=== PATIENT | female | born 1985 | race Caucasian/White ===

== ENCOUNTER 2016-05-20 02:57 | Emergency (ER) | payer OTHER ==
[2016-05-20 03:10] VITALS: BP 139/88; PULSE 68; TEMP 97.3; BMI 22.6
--- NOTE | 2016-05-20 03:38 | PDOC ---
History of Present Illness - General History Source: Patient Exam Limitations: No Limitations - History of Present Illness Initial Comments: 05/20/16 04:23 The patient is a 30-year-old female no significant past medical history, and presents to the emergency department with right ear pain for 4 days. The patient states that the alongside the right ear pain, she found slight blood in the ear as she was cleaning it. She reports associated intermittent chills. She reports that this has never happened previously. She states that she is eating fine. She denies any pain swallowing. She denies any sick contacts. The patient denies chest pain, shortness of breath, headache and dizziness. The patient denies fever, nausea, vomit, diarrhea and constipation. The patient denies dysuria, frequency, urgency and hematuria. Allergies: penicillin, kiwi Social History: Denies tobacco, ETOH, or drug use. PCP: Dr. Myla Garvey <Priscilla Sharma - Last Filed: 05/20/16 04:23> <Janine Fisher - Last Filed: 05/20/16 05:42> - General Chief Complaint: Ear Problem Stated Complaint: EAR PAIN Time Seen by Provider: 05/20/16 03:19 Past History <Priscilla Sharma - Last Filed: 05/20/16 04:23> - Past Medical History Asthma: No Cancer: No Cardiac Disorders: No Diabetes: No HTN: No Seizures: No Thyroid Disease: No - Reproductive History (#): 1 Para: 0 - Immunization History Immunization Up to Date: (unknown) - Psycho/Social/Smoking Cessation Hx Suicidal Ideation: No Smoking Status: No Smoking History: Never smoked Have you smoked in the past 12 months: No Number of Cigarettes Smoked Daily: 0 Hx Alcohol Use: No Drug/Substance Use Hx: No Substance Use Type: None Hx Substance Use Treatment: No <Janine Fisher - Last Filed: 05/20/16 05:42> - Past Medical History Allergies/Adverse Reactions: Allergies Allergy/AdvReac Type Severity Reaction Status Date / Time Penicillins Allergy Severe Difficulty Verified 05/20/16 03:09 Breathing kiwi Allergy Verified 05/20/16 03:09 pineapple Allergy Verified 05/20/16 03:09 Home Medications: Ambulatory Orders Azithromycin [Zithromax Tri-Arjun (3 DAYS) -] 500 mg PO DAILY #3 tablet 05/20/16 Ofloxacin Otic [Floxin Otic (Ear) Solution -] 5 drop AD BID #1 bottle 05/20/16 Oxycodone HCl/Acetaminophen [Percocet 5-325 mg Tablet] 1 tab PO Q6H #20 tablet MDD 4 05/20/16 Review of Systems - Review of Systems Able to Perform ROS?: Yes Comments:: 05/20/16 04:23 CONSTITUTIONAL: Present: (+) chills Absent: fever, diaphoresis, generalized weakness, malaise, loss of appetite HEENT: Present: (+) right ear pain Absent: rhinorrhea, nasal congestion, throat pain, throat swelling, difficulty swallowing, mouth swelling, eye pain, visual changes CARDIOVASCULAR: Absent: chest pain, syncope, palpitations, irregular heart rate, lightheadedness , peripheral edema RESPIRATORY: Absent: cough, shortness of breath, dyspnea with exertion, orthopnea, wheezing, stridor, hemoptysis GASTROINTESTINAL: Absent: abdominal pain, abdominal distension, nausea, vomiting, diarrhea, constipation, melena, hematochezia GENITOURINARY: Absent: dysuria, frequency, urgency, hesitancy, hematuria, flank pain, genital pain MUSCULOSKELETAL: Absent: myalgia, arthralgia, joint swelling SKIN: Absent: rash, itching, pallor HEMATOLOGIC/IMMUNOLOGIC: Absent: easy bleeding, easy bruising, lymphadenopathy, frequent infections ENDOCRINE: Absent: unexplained weight gain, unexplained weight loss, heat intolerance, cold intolerance NEUROLOGIC: Absent: headache, focal weakness or paresthesias, dizziness, unsteady gait, seizure, mental status changes, bladder or bowel incontinence PSYCHIATRIC: Absent: anxiety, depression, suicidal or homicidal ideation, hallucinations. <Priscilla Sharma - Last Filed: 05/20/16 04:23> *Physical Exam - Vital Signs Last Vital Signs Temp Pulse Resp BP Pulse Ox 97.3 F L 68 18 139/88 97 05/20/16 03:05 05/20/16 03:05 05/20/16 03:05 05/20/16 03:05 05/20/16 03:05 - Physical Exam Comments: 05/20/16 04:23 GENERAL: Well developed, well nourished. Awake and alert. No acute distress. HEENT: (+) Perforated right TM. Normocephalic, atraumatic. PERRLA, EOMI. No conjunctival pallor. Sclera are non-icteric. Moist mucous membranes. Oropharynx is clear. NECK: Supple. Full ROM. No JVD. Carotid pulses 2+ and symmetric, without bruits. No thyromegaly. No lymphadenopathy. CARDIOVASCULAR: Regular rate and rhythm. No murmurs, rubs, or gallops. Distal pulses are 2+ and symmetric. PULMONARY: No evidence of respiratory distress. Lungs clear to auscultation bilaterally. No wheezing, rales or rhonchi. ABDOMINAL: Soft. Non-tender. Non-distended. No rebound or guarding. No organomegaly. Normoactive bowel sounds. MUSCULOSKELETAL Normal range of motion at all joints. No bony deformities or tenderness. No CVA tenderness. EXTREMITIES: No cyanosis. No clubbing. No edema. No calf tenderness. SKIN: Warm and dry. Normal capillary refill. No rashes. No jaundice. NEUROLOGICAL: Alert, awake, appropriate. Cranial nerves 2-12 intact. No deficits to light touch and temperature in face, upper extremities and lower extremities. No motor deficits in the in face, upper extremities and lower extremities. Normoreflexic in the upper and lower extremities. Normal speech. Toes are down- going bilaterally. Gait is normal without ataxia. PSYCHIATRIC: Cooperative. Good eye contact. Appropriate mood and affect. <Priscilla Sharma - Last Filed: 05/20/16 04:23> - Vital Signs Last Vital Signs Temp Pulse Resp BP Pulse Ox 97.3 F L 68 18 139/88 97 05/20/16 03:05 05/20/16 03:05 05/20/16 03:05 05/20/16 03:05 05/20/16 03:05 <Janine Fisher - Last Filed: 05/20/16 05:42> ED Treatment Course - Medications Given in the ED: ED Medications Discontinued Medications Generic Name Dose Route Start Last Admin Trade Name Freq PRN Reason Stop Dose Admin Azithromycin 500 mg 05/20/16 03:45 05/20/16 03:53 Zithromax - PO 05/20/16 03:46 500 mg ONCE ONE Administration Ibuprofen 600 mg 05/20/16 03:47 05/20/16 03:53 Motrin - PO 05/20/16 03:48 600 mg ONCE ONE Administration <Priscilla Sharma - Last Filed: 05/20/16 04:23> Medical Decision Making - Medical Decision Making 05/20/16 05:40 Pt comes with right TM perforation x 4 days. She will be sent home with oflox otic and amoxil. She has an appointment in [address] Collins. No fever and no otorrhea <Janine Fisher - Last Filed: 05/20/16 05:42> *DC/Admit/Observation/Transfer - Attestations Scribe Attestion: 05/20/16 04:23 Documentation prepared by Priscilla Sharma, acting as biomedical equipment technician for Janine Fisher MD. <Priscilla Sharma - Last Filed: 05/20/16 04:23> - Discharge Dispostion Admit: No <Janine Fisher - Last Filed: 05/20/16 05:42> Diagnosis at time of Disposition: Perforated ear drum - Discharge Dispostion Disposition: HOME Condition at time of disposition: Stable - Prescriptions Prescriptions: Ofloxacin Otic [Floxin Otic (Ear) Solution -] 5 drop AD BID #1 bottle Oxycodone HCl/Acetaminophen [Percocet 5-325 mg Tablet] 1 tab PO Q6H #20 tablet MDD 4 Azithromycin [Zithromax Tri-Arjun (3 DAYS) -] 500 mg PO DAILY #3 tablet - Referrals Referrals: Myla Garvey MD [Primary Care Provider] - Mario Collins MD [Staff Physician] - - Patient Instructions Printed Discharge Instructions: DI for Tympanic Membrane Perforation-Adult
[2016-05-20] MEDS ORDERED: AZITHROMYCIN 250 MG TABLET (FP) PO ONE (03:45)
[2016-05-20] MEDS ORDERED: IBUPROFEN 600 MG TABLET (FP) PO ONE ×2 (03:47→03:52)
[2016-05-20] MEDS ORDERED: AZITHROMYCIN 250 MG TABLET (FP) ONE (03:51)
== END 2016-05-20 03:55 | disposition home or self-care (01) ==
LOC: JER 02:57
DX: H72.91 Unspecified perforation of tympanic membrane, right ear (principal)
CPT/HCPCS: 99282-25

== ENCOUNTER 2019-03-24 22:30 | Inpatient (IN) | payer OTHER ==
[2019-03-24] MEDS ORDERED: PROMETHAZINE HCL 25 MG/1 ML VIAL IVPUSH ONE (23:25)
[2019-03-24] MEDS ORDERED: BUTORPHANOL TARTRATE 1 MG/ML VIAL IVPB ONE (23:25)
[2019-03-24] MEDS ORDERED: ELECTROLYTE-148 SOLN 1,000 ML IV SCH (23:30)
--- NOTE | 2019-03-24 23:33 | HP ---
Past Medical History - Primary Care Physician PCP:: Chana Mathis - Admission Chief Complaint: 39 week. Elective Delivery History of Present Illness: 33 yo 021 spont ab x 2 adimitted for elective induction of labor no rom, bleeding or ROM +AFM History Source: Patient Limitations to Obtaining History: No Limitations - Past Medical History ...: 4 ...Para: 1 ...Spon : 2 - Past Surgical History Past Surgical History: Yes: None Hx Myomectomy: No Hx Transabdominal Cerclage: No - Smoking History Smoking history: Never smoked Have you smoked in the past 12 months: No Aproximately how many cigarettes per day: 0 - Alcohol/Substance Use Hx Alcohol Use: No History of Substance Use: reports: None - Social History Usual Living Arrangement: Yes: With Spouse History of Recent Travel: No Home Medications - Allergies Allergies/Adverse Reactions: Allergies Allergy/AdvReac Type Severity Reaction Status Date / Time Penicillins Allergy Severe Difficulty Verified 05/20/16 03:09 Breathing kiwi Allergy Verified 05/20/16 03:09 pineapple Allergy Verified 05/20/16 03:09 - Home Medications Home Medications: Ambulatory Orders Ferrous Sulfate 325 mg PO DAILY 03/24/19 Kosher Plus Iron Tab 1 mg PO DAILY 03/24/19 Review of Systems - Review of Systems Constitutional: reports: No Symptoms Eyes: reports: No Symptoms HENT: reports: No Symptoms Neck: reports: No Symptoms Cardiovascular: reports: No Symptoms Respiratory: reports: No Symptoms Gastrointestinal: reports: No Symptoms Genitourinary: reports: No Symptoms Breasts: reports: No Symptoms Reported Musculoskeletal: reports: No Symptoms Integumentary: reports: No Symptoms Neurological: reports: No Symptoms Endocrine: reports: No Symptoms Hematology/Lymphatic: reports: No Symptoms Psychiatric: reports: No Symptoms Physical Exam - Maternity Constitutional: Yes: Well Nourished, No Distress - Abdominal Exam/OB Number of Fetuses: Single Presentation: Vertex Regularity: Irregular Heart Rate Location: [facility] Category: I - Vaginal Exam/OB Vaginal Bleediing: No Dilatation (cm): 1 Amniotic Membrane Status: Intact Presentation: Vertex/Position Station: -1 - Physical Exam Musculoskeletal: Yes: WNL Extremities: Yes: WNL Edema: No Integumentary: Yes: WNL ...Motor Strength: WNL Psychiatric: Yes: WNL, Alert, Oriented Hemorrhage Risk Assessment - Risk Factors Risk Score: 0 Risk Level: Low Risk Problem List - Problems (1) 39 weeks gestation of Problems reviewed: Yes Code(s): Z3A.39 - 39 WEEKS GESTATION OF Assessment/Plan 39 week elective induction Cat 1 x 1 2015 - lbs Plan cervidil placed
[2019-03-24] MEDS ORDERED: DINOPROSTONE 10 MG VAGINAL SUPPOSITORY VG ONE (23:38)
[2019-03-24 23:54] VITALS: BMI 28.1
[2019-03-25 00:52] LABS: BASO % 0.4 % (0-2.0); EOS % 1.8 % (0-4.5); HEMATOCRIT 35.7 % (32.4-45.2); HEMOGLOBIN 11.7 GM/dL (10.7-15.3); LYMPH % 28.3 % (8-40); MCH 27.5 pg (25.7-33.7); MCHC 32.7 g/dl (32.0-36.0); MEAN CELL VOLUME 83.9 fl (80-96); MEAN PLT VOLUME 10.6 fl (7.5-11.1); MONO % 9.4 % (3.8-10.2); NEUT % 60.1 % (42.8-82.8); PLATELET COUNT 166 K/MM3 (134-434); RBC 4.25 M/mm3 (3.60-5.2); RDW 13.9 % (11.6-15.6); WHITE BLOOD COUNT 5.4 K/mm3 (4.0-10.0)
[2019-03-25 01:06] LABS: INR 0.94 (0.83-1.09); PROTHROMBIN TIME (PATIENT) 11.1 SEC (9.7-13.0)
[2019-03-25 01:09] LABS: ACTIVATED PTT 26.3 SECONDS (25.2-36.5)
[2019-03-25 01:14] LABS: BLOOD UREA NITROGEN 4.7 mg/dL (7-18); CALCIUM 8.9 mg/dL (8.5-10.1); CREATININE 0.4 mg/dL (0.55-1.3); POTASSIUM 3.9 mmol/L (3.5-5.1)
[2019-03-25] MEDS ORDERED: BUTORPHANOL TARTRATE 1 MG/ML VIAL ONE ×2 (04:44)
[2019-03-25] MEDS ORDERED: PROMETHAZINE HCL 25 MG/1 ML VIAL ONE (04:44)
[2019-03-25] MEDS ORDERED: OXYTOCIN 20 UNITS in 0.9% NS 20 UNIT/1,000 ML INFUS.BAG IV ONE (05:28)
[2019-03-25] MEDS ORDERED: LIDOCAINE HCL 1% PRESERVATIVE FREE - 30ML VIAL ONE (05:28)
--- NOTE | 2019-03-25 06:04 | PN ---
Ante-Partal Exam - Subjective Subjective: Pt with variable decels Vital Signs: Vital Signs Temperature 97.9 F 03/25/19 02:00 Pulse Rate 82 03/25/19 02:00 Respiratory Rate 20 03/25/19 02:00 Blood Pressure 104/67 03/25/19 02:00 O2 Sat by Pulse Oximetry (%) Bleeding: No Headache: No Visual changes: No Right upper quadrant pain: No - Contractions Contractions: Yes Regularity: Regular Intensity: Mod/Strong Monitor Mode: External - Exam during Labor Heart Rate: 110 Variability: Moderate Category: II Exam: Vaginal Dilatation (cm): 9 Amniotic Membrane Status: Ruptured Presentation: Vertex - Intrapartum Hemorrhage Risk Risk Score: 0 Risk Level: Low Risk - Assessment/Plan Assessment/Plan: Active labor Cat 2 variable decels with good varibility Plan Anticiptae vaginal delivery
--- NOTE | 2019-03-25 06:06 | PN ---
Ante-Partal Exam - Subjective Subjective: Pt with tentanic contractions Vital Signs: Vital Signs Temperature 97.9 F 03/25/19 02:00 Pulse Rate 82 03/25/19 02:00 Respiratory Rate 20 03/25/19 02:00 Blood Pressure 104/67 03/25/19 02:00 O2 Sat by Pulse Oximetry (%) Bleeding: No Headache: No Visual changes: No Right upper quadrant pain: No - Contractions Contractions: Tachysystole (Greater than 5 contractions in a 10 minute period) Regularity: Regular Monitor Mode: External - Exam during Labor Variability: Moderate Category: I Exam: Vaginal (cervidil removed) Dilatation (cm): 5 Effacement (%): 80 Presentation: Vertex Station: -1 - Assessment/Plan Assessment/Plan: Active labor Cat1 Plan Anticipate vaginal delivery
[2019-03-25] MEDS ORDERED: METHYLERGONOVINE MALEATE 0.2 MG/1 ML AMP IM PRN (06:14)
[2019-03-25] MEDS ORDERED: BENZOCAINE 28 GM HEMORRHOIDAL OINTMENT PR PRN (06:14)
[2019-03-25] MEDS ORDERED: BISACODYL 10 MG SUPP.RECT RC PRN (06:14)
[2019-03-25] MEDS ORDERED: WITCH HAZEL 50% (TUCKS) 40 PAD/JAR PAD TP PRN (06:14)
[2019-03-25] MEDS ORDERED: BENZOCAINE 20% 57 GM BOTTLE TP PRN (06:14)
[2019-03-25] MEDS ORDERED: OXYTOCIN 20 UNITS in 0.9% NS 20 UNIT/1,000 ML INFUS.BAG IV SCH (06:15)
--- NOTE | 2019-03-25 07:19 | PROC ---
Obstetrical Vaccum Device - Doc. Following Use of Vaccum Device Indications for use: Bradycardia Risks and Benefits Explained: Yes Consent on Chart: Yes Dilation (0-10): 10 Station: 1 Position: OA Caput: No Proper placement of cup confirmed: No Number of pulls: 2 Number of pop-offs: 0
--- NOTE | 2019-03-25 07:29 | PN ---
Delivery - Delivery Vaginal Delivery: No Problems, Vacuum Assist (Nuchal cord x2) Type of Anesthesia: Local Episiotomy/Laceration: 1st degree (2- 0 chromic repaired) Delivery, Single - [place] Feeding Plan Initial Plan: Exclusive throughout hospitalization
[2019-03-25] MEDS ORDERED: FLU VACCINE QUAD 60 MCG/0.5 ML (MDV 19-20) IM ONE (10:00)
[2019-03-25] MEDS: IBUPROFEN 600 MG TABLET (FP) PO PRN ×2 (10:14→17:42)
[2019-03-25] MEDS ORDERED: FLU VACC QS2019-20(6MOS UP)/PF 60 MCG/0.5 ML SYRINGE IM ONE (10:15)
[2019-03-25] MEDS: ACETAMINOPHEN 325 MG TABLET (FP) PO PRN ×2 (10:15→17:41)
[2019-03-25] MEDS ORDERED: DIPHTH,PERTUSS(ACELL),TET 0.5 ML DISP.SYRIN IM ONE (11:00)
[2019-03-26] MEDS ORDERED: DIPHTH,PERTUSS(ACELL),TET 0.5 ML DISP.SYRIN IM ONE (10:00)
[2019-03-26] MEDS ORDERED: FLU VACC QS2019-20(6MOS UP)/PF 60 MCG/0.5 ML SYRINGE IM ONE (10:00)
--- NOTE | 2019-03-26 10:11 | PN ---
Post Progress Note - Subjective Subjective: 33 yo Para 2 status post vacuum assisted vaginal delivery, seen and evaluated. Doing well Post Day: 1 Type of Delivery: Vacuum Assist Vag Del Vital Signs: Vital Signs Temperature 98.0 F 03/26/19 08:57 Pulse Rate 73 03/26/19 08:57 Respiratory Rate 20 03/26/19 08:57 Blood Pressure 116/70 03/26/19 08:57 O2 Sat by Pulse Oximetry (%) 100 03/25/19 07:45 Breast Exam: Yes: Soft Uterus: Yes: Fundus Firm Abdomen/GI: Yes: Abdomen soft, Tolerating PO Lochia: Yes: Rubra Lochia, amount: Small Extremities: Yes: Calves non-tender Perineum: Yes: Episiotomy Activity: Ambulating - Labs Labs: CBC WBC 5.4 K/mm3 (4.0-10.0) 03/25/19 00:05 RBC 4.25 M/mm3 (3.60-5.2) 03/25/19 00:05 Hgb 11.7 GM/dL (10.7-15.3) 03/25/19 00:05 Hct 35.7 % (32.4-45.2) 03/25/19 00:05 MCV 83.9 fl (80-96) 03/25/19 00:05 MCH 27.5 pg (25.7-33.7) 03/25/19 00:05 MCHC 32.7 g/dl (32.0-36.0) 03/25/19 00:05 RDW 13.9 % (11.6-15.6) 03/25/19 00:05 Plt Count 166 K/MM3 (134-434) 03/25/19 00:05 MPV 10.6 fl (7.5-11.1) 03/25/19 00:05 Absolute Neuts (auto) 3.3 K/mm3 (1.5-8.0) 03/25/19 00:05 Neutrophils % 60.1 % (42.8-82.8) 03/25/19 00:05 Lymphocytes % 28.3 % (8-40) 03/25/19 00:05 Monocytes % 9.4 % (3.8-10.2) 03/25/19 00:05 Eosinophils % 1.8 % (0-4.5) D 11/20/19 00:05 Basophils % 0.4 % (0-2.0) 03/25/19 00:05 Nucleated RBC % 0 % (0-0) 03/25/19 00:05 Problem List - Problems (1) Status post vacuum-assisted vaginal delivery Problems reviewed: Yes Code(s): Z87.59 - PERSONAL HISTORY OF COMP OF PREG, CHLDBRTH AND THE PUERP Assessment/Plan Status post vacuum assisted vaginal delivery Stable Continue routine care
[2019-03-26 10:46] LABS: BASO % 0.7 % (0-2.0); EOS % 2.2 % (0-4.5); HEMATOCRIT 33.7 % (32.4-45.2); MCH 27.5 pg (25.7-33.7); MCHC 32.7 g/dl (32.0-36.0); MEAN PLT VOLUME 10.2 fl (7.5-11.1); MONO % 7.6 % (3.8-10.2); NEUT % 62.5 % (42.8-82.8); PLATELET COUNT 152 K/MM3 (134-434); RBC 4.01 M/mm3 (3.60-5.2); RDW 13.9 % (11.6-15.6); WHITE BLOOD COUNT 6.2 K/mm3 (4.0-10.0)
[2019-03-26] MEDS: ACETAMINOPHEN 325 MG TABLET (FP) PO PRN (11:00)
[2019-03-26] MEDS: IBUPROFEN 600 MG TABLET (FP) PO PRN (11:00)
[2019-03-27] MEDS: ACETAMINOPHEN 325 MG TABLET (FP) PO PRN ×2 (02:11→10:40)
[2019-03-27] MEDS: IBUPROFEN 600 MG TABLET (FP) PO PRN ×2 (02:12→10:39)
[2019-03-27 09:00] VITALS: BP 121/85; PULSE 79; TEMP 97.4
== END 2019-03-27 13:00 | disposition home or self-care (01) | DRG 560 ==
LOC: JLDR 22:30 → J3W 03-25 09:00
PROVIDERS: ADMIT Obstetrics & Gynecology; ATTEND Obstetrics & Gynecology
PROC: 0HQ9XZZ Repair Perineum Skin, External Approach (ICD-10-PCS; principal; 2019-03-25)
PROC: 10D07Z6 Extraction of Products of Conception, Vacuum, Via Natural or Artificial Opening (ICD-10-PCS; 2019-03-25)
DX: O69.81X0 Labor and delivery complicated by cord around neck, without compression, not applicable or unspecified (principal); O70.0 First degree perineal laceration during delivery; O66.5 Attempted application of vacuum extractor and forceps; Z3A.39 39 weeks gestation of pregnancy; Z37.0 Single live birth
CPT/HCPCS: 36415; 36600; 59409; 80048; 82803; 85025; 85610; 85730; 86593; 86850; 86900; 86901; 90686; 90715

== ENCOUNTER 2019-06-24 22:55 | Emergency (ER) | payer OTHER ==
[2019-06-24 23:11] VITALS: TEMP 97.4; BMI 24.9
--- NOTE | 2019-06-25 00:02 | PDOC ---
History of Present Illness - General Chief Complaint: Chest Pain Stated Complaint: LT SIDE PAIN Time Seen by Provider: 06/25/19 00:01 - History of Present Illness Initial Comments: HPI: 33yo F with no reported PMH presenting with chest pain. The pain is located on the left side of her chest and radiates to her left shoulder. The pain started around 4pm and is described as a "stabbing." Denies any recent trauma or new exercises, but has often been holding her three month old baby. Has not taken anything for her pain. No associated nausea, vomiting, or diaphoresis. Patient is a lifetime non-smoker. Denies family history of heart problems. No hemoptysis , no recent surgical history, no recent immobilization, no hormone use, no history of DVT or PE. ROS: Constitutional: no fever, no chills HEENT: no throat pain, no dysphagia Cardiovascular: +chest pain, no palpitations Respiratory: no cough, no shortness of breath Gastrointestinal: no abdominal pain, no nausea Genitourinary: no dysuria, no hematuria Musculoskeletal: no myalgia, no arthralgia Skin: no rash, no itching Neurologic: no headache, no weakness Psych: no agitation, no anxiety PE: General: Awake, alert, and fully oriented, in no acute distress Head: No signs of trauma Eyes: EOMI, sclera anicteric ENT: Moist mucus membranes Neck: Normal ROM, supple Lungs: Lungs clear, Normal breath sounds Cardio: Regular rhythm, S1 and S2 present; chest wall pain is reproducible upon palpation Abdomen: Soft, nontender. No guarding, no rebound, no masses Extremities: Normal range of motion, Distal pulses present SKIN: Warm, Dry, normal turgor Neurologic: Cranial nerves II through XII grossly intact. Normal speech ED Course/MDM: DDX including but not limited to MSK, ACS, PE, PNA, anemia, metabolic derangement Labs, EKG, CXR Patient is PERC 0, low suspicion for PE EKG; rate 54, Qtc 400, Sinus 06/25/19 00:01 CBC WBC 4.4 K/mm3 (4.0-10.0) 06/25/19 01:18 RBC 4.91 M/mm3 (3.60-5.2) 06/25/19 01:18 Hgb 13.2 GM/dL (10.7-15.3) 06/25/19 01:18 Hct 40.4 % (32.4-45.2) D 06/25/19 01:18 MCV 82.2 fl (80-96) 06/25/19 01:18 MCH 26.9 pg (25.7-33.7) 06/25/19 01:18 MCHC 32.8 g/dl (32.0-36.0) 06/25/19 01:18 RDW 13.6 % (11.6-15.6) 06/25/19 01:18 Plt Count 290 K/MM3 (134-434) D 06/25/19 01:18 MPV 9.1 fl (7.5-11.1) D 06/25/19 01:18 Absolute Neuts (auto) 1.9 K/mm3 (1.5-8.0) 06/25/19 01:18 Neutrophils % 43.2 % (42.8-82.8) D 06/25/19 01:18 Lymphocytes % 47.1 % (8-40) H D 06/25/19 01:18 Monocytes % 7.8 % (3.8-10.2) 06/25/19 01:18 Eosinophils % 1.5 % (0-4.5) 06/25/19 01:18 Basophils % 0.4 % (0-2.0) 06/25/19 01:18 Nucleated RBC % 0 % (0-0) 06/25/19 01:18 No leukocytosis CMP Sodium 139 mmol/L (136-145) 06/25/19 01:18 Potassium 4.0 mmol/L (3.5-5.1) 06/25/19 01:18 Chloride 107 mmol/L (98-107) 06/25/19 01:18 Carbon Dioxide 26 mmol/L (21-32) 06/25/19 01:18 Anion Gap 5 MMOL/L (8-16) L 06/25/19 01:18 BUN 10.3 mg/dL (7-18) 06/25/19 01:18 Creatinine 0.6 mg/dL (0.55-1.3) 06/25/19 01:18 Est GFR (CKD-EPI)AfAm 138.80 06/25/19 01:18 Est GFR (CKD-EPI)NonAf 119.76 06/25/19 01:18 Random Glucose 91 mg/dL (74-106) 06/25/19 01:18 Calcium 9.1 mg/dL (8.5-10.1) 06/25/19 01:18 Total Bilirubin 0.2 mg/dL (0.2-1) 06/25/19 01:18 AST 22 U/L (15-37) 06/25/19 01:18 ALT 51 U/L (13-61) 06/25/19 01:18 Alkaline Phosphatase 119 U/L (45-117) H 06/25/19 01:18 Troponin I < 0.02 ng/ml (0.00-0.05) 06/25/19 01:18 Total Protein 8.6 g/dl (6.4-8.2) H 06/25/19 01:18 Albumin 4.2 g/dl (3.4-5.0) 06/25/19 01:18 Serum , Qual Negative 06/25/19 01:35 Electrolytes unremarkable No transaminitis Tpn undetectable negative CXR without acute abnormality, my impression Low suspicion for acute cardiac process Patient feeling better Asking to go home To follow up with primary care Return precautions Stable for discharge EXAM#: TYPE/EXAM: RESULT: [id number] RAD/CHEST PA LAT S : Chest pain 2 views of the chest reveal clear lungs, normal mediastinum and sharp angles. The bones and soft tissues are intact and there is slight scoliosis with convexity to the right. Since 12/07/2015 there is no change of an adverse nature. Impression: No acute chest pathology. Reported By: Mario Fay MD 06/25/19 0703 Past History - Past Medical History Allergies/Adverse Reactions: Allergies Allergy/AdvReac Type Severity Reaction Status Date / Time Penicillins Allergy Severe Difficulty Verified 05/20/16 03:09 Breathing kiwi Allergy Verified 05/20/16 03:09 pineapple Allergy Verified 05/20/16 03:09 Home Medications: Ambulatory Orders Ferrous Sulfate 325 mg PO DAILY 03/24/19 Kosher Plus Iron Tab 1 mg PO DAILY 03/24/19 Ibuprofen [Motrin -] 600 mg PO QID #28 tablet 03/27/19 Ibuprofen [Motrin -] 400 mg PO Q6H PRN #60 tablet 06/25/19 Asthma: No Cancer: No Cardiac Disorders: No Diabetes: No HTN: No Seizures: No Thyroid Disease: No - Reproductive History (#): 1 Para: 0 - Immunization History Immunization Up to Date: (unknown) - Psycho Social/Smoking Cessation Hx Smoking Status: No Smoking History: Never smoked Have you smoked in the past 12 months: No Number of Cigarettes Smoked Daily: 0 Hx Alcohol Use: No Drug/Substance Use Hx: No Substance Use Type: None Hx Substance Use Treatment: No *Physical Exam - Vital Signs Last Vital Signs Temp Pulse Resp BP Pulse Ox 97.4 F L 70 20 117/63 100 06/24/19 23:07 06/24/19 23:07 06/24/19 23:07 06/24/19 23:07 06/24/19 23:07 ED Treatment Course - LABORATORY CBC & Chemistry Diagram: 06/25/19 01:18 06/25/19 01:18 Discharge - Discharge Information Problems reviewed: Yes Clinical Impression/Diagnosis: Costochondritis Condition: Stable Disposition: HOME - Additional Discharge Information Prescriptions: Ibuprofen [Motrin -] 400 mg PO Q6H PRN #60 tablet PRN Reason: Pain - Follow up/Referral Referrals: Myla Garvey MD [Primary Care Provider] - - Patient Discharge Instructions Patient Printed Discharge Instructions: DI for Costochondritis Additional Instructions: You came into the emergency department for chest pain. Lab work, Xray, and EKG did not indicate acute pathology. Eat and hydrate throughout the day to prevent dehydration and low blood sugar levels. You can take [id number] tylenol or motrin for pain. Follow the instructions on the medication bottle. Follow up with your primary care physician within 72 hours. Call and make an appointment to further evaluate your weakness. Your workup is not complete until you do so. Immediate medical attention is required if you have: worsening chest pain, palpitations, shortness of breath, severe headaches, changes in vision, episodes of fainting, focal numbness or weakness, any severe abdominal pain, any black tarry stool, or any new or concerning symptoms. If you think you are having an emergency, call for emergency medical services or present to the emergency department right away. - Post Discharge Activity
[2019-06-25] MEDS ORDERED: ACETAMINOPHEN 325 MG TABLET (FP) PO ONE (00:23)
[2019-06-25] MEDS ORDERED: KETOROLAC TROMETHAMINE 30 MG/1 ML VIAL IM ONE (01:24)
--- NOTE | 2019-06-25 01:26 | PDOC ---
Documentation entered by Kolton Bueno SCRIBE, acting as scribe for Julio Crockett MD. Julio Crockett MD: This documentation has been prepared by the Myles to X[place], SCRIBE, under my direction and personally reviewed by me in its entirety. I confirm that the documentation accurately reflects all work, treatment, procedures, and medical decision making performed by me. Attending Attestation - Resident Resident Name: AngieJessicaRut - ED Attending Attestation I have performed the following: I have examined & evaluated the patient, The case was reviewed & discussed with the resident, I agree w/resident's findings & plan, Exceptions are as noted - HPI HPI: 06/25/19 01:24 33-year-old female with no previous medical history, 4 months presents with atraumatic, pleuritic, reproducible left-sided and substernal chest wall pain. - Physicial Exam PE: 06/25/19 01:24 EXAMINATION CONSTITUTIONAL: Well-appearing; well-nourished; in no apparent distress HEAD: Normocephalic; atraumatic NECK: Supple; non-tender; no cervical lymphadenopathy CARD: Normal S1, S2; no murmurs, rubs, or gallops RESP: Normal chest excursion with respiration; breath sounds clear and equal bilaterally; no wheezes, rhonchi, or rales ABD: Soft, non-distended; non-tender; no palpable organomegaly, no palpable hernias EXT: Normal ROM in all four extremities; non-tender to palpation; distal pulses intact SKIN: Warm, dry, no rash NEURO: No focal neurological deficiencies. - Medical Decision Making 06/25/19 01:25 33-year-old female with no previous medical history presents with signs and symptoms of acute costochondritis. Will obtain chest x-ray to rule out pneumothorax and evaluate for cardiomegaly. EKG shows sinus bradycardia without evidence of acute ischemia or dysrhythmia. Patient is negative for PE by PERC rule. I do not suspect ACS in this patient with no previous risk factors for CAD. Will administer IM Toradol. Likely discharge.
[2019-06-25 01:39] LABS: BASO % 0.4 % (0-2.0); EOS % 1.5 % (0-4.5); HEMATOCRIT 40.4 % (32.4-45.2); HEMOGLOBIN 13.2 GM/dL (10.7-15.3); LYMPH % 47.1 % (8-40); MCH 26.9 pg (25.7-33.7); MCHC 32.8 g/dl (32.0-36.0); MEAN CELL VOLUME 82.2 fl (80-96); MEAN PLT VOLUME 9.1 fl (7.5-11.1); MONO % 7.8 % (3.8-10.2); NEUT % 43.2 % (42.8-82.8); PLATELET COUNT 290 K/MM3 (134-434); RBC 4.91 M/mm3 (3.60-5.2); RDW 13.6 % (11.6-15.6); WHITE BLOOD COUNT 4.4 K/mm3 (4.0-10.0)
[2019-06-25 02:05] LABS: ALBUMIN 4.2 g/dl (3.4-5.0); BILIRUBIN,TOTAL 0.2 mg/dL (0.2-1); BLOOD UREA NITROGEN 10.3 mg/dL (7-18); CALCIUM 9.1 mg/dL (8.5-10.1); CREATININE 0.6 mg/dL (0.55-1.3); TOT PROT 8.6 g/dl (6.4-8.2)
[2019-06-25 02:39] VITALS: BP 123/79; PULSE 72
--- NOTE | 2019-06-25 14:14 | EKG ---
Test Reason : Blood Pressure : / mmHG Vent. Rate : 054 BPM Atrial Rate : 054 BPM P-R Int : 130 ms QRS Dur : 080 ms QT Int : 422 ms P-R-T Axes : 039 -02 041 degrees QTc Int : 400 ms SINUS BRADYCARDIA OTHERWISE NORMAL ECG NO PREVIOUS ECGS AVAILABLE Confirmed by DELILAH GRAVES MD ([id number]) on 06/25/2019 2:13:42 PM Referred By: Confirmed By:DELILAH GRAVES MD
== END 2019-06-25 02:47 | disposition home or self-care (01) ==
LOC: JER 22:55
DX: M94.0 Chondrocostal junction syndrome [Tietze] (principal); Z88.0 Allergy status to penicillin; Z91.018 Allergy to other foods
CPT/HCPCS: 36415; 71046-TC-FY; 80053; 84484; 84703; 85025; 93005; 93010; 99285-25

== ENCOUNTER 2023-01-09 15:25 | Emergency (ER) | payer OTHER ==
[2023-01-09 15:40] VITALS: BP 113/76; PULSE 66; RESP 18; TEMP 98.2; BMI 25.4
[2023-01-09] MEDS ORDERED: SODIUM CHLORIDE 1,000 ML IV ONE (16:04)
[2023-01-09] MEDS ORDERED: ACETAMINOPHEN 1000 MG/100 ML BAG IVPB ONE (16:05)
[2023-01-09] MEDS ORDERED: ACETAMINOPHEN INJECTION 100 ML IVPB ONE (16:54)
[2023-01-09 17:39] LABS: BASO % 0.3 % (0-2.0); EOS % 1.2 % (0-4.5); HEMATOCRIT 37.6 % (32.4-45.2); HEMOGLOBIN 12.1 GM/dL (10.7-15.3); LYMPH % 42.7 % (8-40); MCHC 32.2 g/dl (32.0-36.0); MEAN CELL VOLUME 77.6 fl (80-96); MEAN PLT VOLUME 8.7 fl (7.5-11.1); MONO % 9.4 % (3.8-10.2); NEUT % 46.4 % (42.8-82.8); PLATELET COUNT 266 10^3/uL (134-434); RBC 4.84 M/mm3 (3.60-5.2); RDW 14.5 % (11.6-15.6); WHITE BLOOD COUNT 4.5 K/mm3 (4.0-10.0)
[2023-01-09 17:46] LABS: INR 1.06 (0.83-1.09); PROTHROMBIN TIME (PATIENT) 12.3 SEC (9.7-13.0)
[2023-01-09 17:49] LABS: ACTIVATED PTT 34.7 SECONDS (25.2-36.5)
[2023-01-09 17:52] LABS: EPI CELLS >36 /uL (0-25.1); HCG,QUALITATIVE URINE Positive; HYALINE CASTS 6 /uL (0-3.1); URINE APPEARANCE TURBID; URINE BACTERIA 1648 /uL (0-1359); URINE BILIRUBIN NEGATIVE (NEGATIVE); URINE COLOR YELLOW; URINE GLUCOSE (UA) NEGATIVE (NEGATIVE); URINE KETONE TRACE (NEGATIVE); URINE LEUK ESTERASE TRACE (NEGATIVE); URINE NITRITE NEGATIVE (NEGATIVE); URINE PROTEIN 1+ (NEGATIVE); URINE UROBILINOGEN 0.2 mg/dL (0.2-1.0); URINE WBC 154 /uL (0-25.8)
[2023-01-09 18:03] LABS: POTASSIUM 3.9 mmol/L (3.5-5.1)
[2023-01-09 18:05] LABS: BLOOD UREA NITROGEN 15.6 mg/dL (7-18); CALCIUM 8.7 mg/dL (8.5-10.1)
[2023-01-09 18:09] LABS: CREATININE 0.6 mg/dL (0.55-1.3)
[2023-01-09 18:37] LABS: URINE RBC 365.2 /uL (0-23.9)
[2023-01-09] MEDS ORDERED: NITROFURANTOIN MACROCRYSTAL 50 MG CAPSULE (FP) PO ONE (19:15)
[2023-01-09] MEDS ORDERED: NITROFURANTOIN MACROCRYSTAL 50 MG CAPSULE (FP) ONE (19:20)
== END 2023-01-09 19:31 | disposition home or self-care (01) ==
LOC: JER 15:25
PROC: 3E033NZ Introduction of Analgesics, Hypnotics, Sedatives into Peripheral Vein, Percutaneous Approach (ICD-10-PCS; principal; 2023-01-09)
PROC: 3E0337Z Introduction of Electrolytic and Water Balance Substance into Peripheral Vein, Percutaneous Approach (ICD-10-PCS; 2023-01-09)
DX: O20.9 Hemorrhage in early pregnancy, unspecified (principal); O23.91 Unspecified genitourinary tract infection in pregnancy, first trimester; R82.71 Bacteriuria; Z3A.01 Less than 8 weeks gestation of pregnancy
CPT/HCPCS: 36415; 76830-TC; 80048; 81003; 84702; 84703; 85025; 85610; 85730; 86850; 86900; 86901; 99284-25